=== PATIENT | female | born 1985 | race Caucasian/White ===

== ENCOUNTER → 2017-12-08 | Outpatient (CLI) | payer OTHER ==
[~2017-12-08] MED LIST: ACETAMINOPHEN325 M1 PO; ADVIL100 M2 PO; APAP500 PO; COLACE 100 MG100 MG PO; FLONASE 0.05%50 MCG NASAL; FLONASE NS; IBUPROFEN 600600 M1 PO; IRON325 PO; LORATIDINE 10 M10 M1 PO; NORCO 7.5-3251 EACH PO; SIMETHICON CHEW80 M1 PO; ZYRTEC10 M2 PO
== END ==
LOC: SEN 09:12
DX: Z11.59 Encounter for screening for other viral diseases (principal)

== ENCOUNTER 2018-08-31 09:27 | Emergency (ER) | payer OTHER ==
[~2018-08-31] VITALS: Ht 157.5 cm; Wt 86.2 kg
[2018-08-31 10:19] LABS: URINE BILIRUBIN NEGATIVE (Negative); URINE BLOOD NEGATIVE (Negative); URINE CLARITY CLEAR; URINE COLOR YELLOW; URINE GLUCOSE-RANDOM* NEGATIVE (Negative); URINE KETONES TRACE (Negative); URINE LEUKOCYTES-REFLEX NEGATIVE (Negative); URINE NITRITE-REFLEX NEGATIVE (Negative); URINE PROTEIN (DIPSTICK) NEGATIVE (Negative); URINE SPECIFIC GRAVITY >= 1.030 (1.005-1.035); URINE UROBILINOGEN 0.2 E.U./dl (0.2-1.0)
[2018-08-31 10:23] LABS: ABSOLUTE NEUTROPHILS 6.5 thou/uL (1.4-8.2); BASOPHILS 0.3 % (0.0-2.0); HEMATOCRIT 43.8 % (37.0-47.0); HEMOGLOBIN 15.2 gm/dL (12.0-15.0); LYMPHOCYTES 14.9 % (24.0-44.0); MCH 30.5 pg (26.0-34.0); MCHC 34.7 g/dL (28.0-37.0); MCV 88.1 fL (80.0-100.0); MONOCYTES 6.3 % (1.0-8.0); PLATELET COUNT 202 thou/uL (150-400); POLYS 77.5 % (36.0-66.0); RBC 4.97 mil/uL (4.20-5.00); WBC 8.4 thou/uL (4.0-11.0)
[2018-08-31 10:30] LABS: ANION GAP 14 mmol/L (7-16); BUN 13 mg/dL (7-18); CALCIUM 9.2 mg/dL (8.5-10.1); CHLORIDE 102 mmol/L (98-107); CO2 21 mmol/L (21-32); CREATININE 0.9 mg/dL (0.6-1.0); GLUCOSE 102 mg/dL (74-106); SODIUM 137 mmol/L (136-145)
[2018-08-31 10:36] LABS: ALBUMIN 4.1 g/dL (3.4-5.0); DIRECT BILIRUBIN < 0.1 mg/dL (<0.1-0.3); LIPASE 76 U/L (73-393); SGOT 23 U/L (15-37); SGPT 41 U/L (30-65); TOTAL BILIRUBIN 0.5 mg/dL (<0.1-1.0)
[2018-08-31] MEDS ORDERED: ZOLOFT 50 MG TA50 MG PO (10:36)
[2018-08-31] MEDS ORDERED: ZOFRAN ODT4 MG PO (12:15)
[2018-08-31] MEDS ORDERED: BENTYL 20 MG TA20 M1 PO (12:15)
[2018-08-31 12:22] VITALS: BP 113/78
== END 2018-08-31 12:40 | disposition home or self-care (01) ==
LOC: ER 09:27
PROVIDERS: Emergency Medicine
DX: R19.7 Diarrhea, unspecified (principal); R11.2 Nausea with vomiting, unspecified; J45.20 Mild intermittent asthma, uncomplicated; Z88.5 Allergy status to narcotic agent

== ENCOUNTER 2019-06-04 11:46 | Emergency (ER) | payer OTHER ==
[~2019-06-04] VITALS: Ht 162.6 cm; Wt 81.7 kg
[~2019-06-04 11:46] MED LIST changes: +BENTYL 20 MG TA20 M1 PO; +ZOFRAN ODT4 MG PO; +ZOLOFT 50 MG TA50 MG PO
[2019-06-04] MEDS ORDERED: KEFLEX500 M1 PO (12:30)
[2019-06-04] MEDS ORDERED: LEVAQUIN 750 M750 MG PO (12:57)
[2019-06-04 13:43] VITALS: BP 115/68
== END 2019-06-04 13:45 | disposition home or self-care (01) ==
LOC: ER 11:46
DX: S91.332A Puncture wound without foreign body, left foot, initial encounter (principal); J45.909 Unspecified asthma, uncomplicated; Z90.89 Acquired absence of other organs; Z98.890 Other specified postprocedural states; Z88.5 Allergy status to narcotic agent; W22.8XXA Striking against or struck by other objects, initial encounter; Y92.89 Other specified places as the place of occurrence of the external cause; Y93.89 Activity, other specified; Y99.8 Other external cause status

== ENCOUNTER → 2019-07-23 | Outpatient (CLI) | payer OTHER ==
[~2019-07-23] MED LIST changes: +KEFLEX500 M1 PO; +LEVAQUIN 750 M750 MG PO
== END ==
LOC: MRI 10:12
DX: S99.922D Unspecified injury of left foot, subsequent encounter (principal); Z88.0 Allergy status to penicillin; X58.XXXD Exposure to other specified factors, subsequent encounter

== ENCOUNTER → 2019-11-19 | Outpatient (CLI) | payer OTHER | LOC: ULTRA 13:31 | DX: O34.81 Maternal care for other abnormalities of pelvic organs, first trimester (principal); Z3A.01 Less than 8 weeks gestation of pregnancy ==

== ENCOUNTER → 2019-11-25 | Outpatient (CLI) | payer OTHER | LOC: ULTRA 13:07 | DX: O34.81 Maternal care for other abnormalities of pelvic organs, first trimester (principal); N83.201 Unspecified ovarian cyst, right side; Z3A.01 Less than 8 weeks gestation of pregnancy ==

== ENCOUNTER → 2020-02-28 | Outpatient (CLI) | payer OTHER | LOC: ULTRA 10:19 | PROVIDERS: ATTEND Obstetrics & Gynecology | DX: Z34.92 Encounter for supervision of normal pregnancy, unspecified, second trimester (principal); Z3A.21 21 weeks gestation of pregnancy ==

== ENCOUNTER → 2020-03-20 | Outpatient (CLI) | payer OTHER | LOC: LAB 08:38 | PROVIDERS: ATTEND Obstetrics & Gynecology | DX: Z01.818 Encounter for other preprocedural examination (principal); Z11.59 Encounter for screening for other viral diseases ==

== ENCOUNTER → 2020-05-17 | Outpatient (CLI) | payer OTHER | LOC: LAB 14:45 | PROVIDERS: ATTEND Obstetrics & Gynecology | DX: Z34.90 Encounter for supervision of normal pregnancy, unspecified, unspecified trimester (principal); Z20.828 Contact with and (suspected) exposure to other viral communicable diseases; Z3A.00 Weeks of gestation of pregnancy not specified ==

== ENCOUNTER → 2020-11-28 | Outpatient (CLI) | payer OTHER | LOC: LAB 09:06 | PROVIDERS: ATTEND Family Medicine | DX: U07.1 COVID-19 (principal) ==

== ENCOUNTER 2021-08-31 10:30 | Emergency (ER) | payer OTHER ==
[~2021-08-31] VITALS: Ht 160 cm; Wt 88.5 kg
[2021-08-31 10:46] VITALS: BP 123/77
== END 2021-08-31 13:37 | disposition home or self-care (01) ==
LOC: ER 10:30
DX: J06.9 Acute upper respiratory infection, unspecified (principal); Z20.822 Contact with and (suspected) exposure to COVID-19; Z91.09 Other allergy status, other than to drugs and biological substances; Z98.890 Other specified postprocedural states; Z79.899 Other long term (current) drug therapy; Z88.0 Allergy status to penicillin; Z88.5 Allergy status to narcotic agent